=== PATIENT | female | born 1975 | race Caucasian/White ===

== ENCOUNTER 2019-02-07 05:44 | Emergency (ER) | payer SELFPAY ==
[2019-02-07] MEDS ORDERED: SODIUM CHLORIDE 0.9% (FLUSH) 10 ML SYG IV PRN (06:00)
[2019-02-07] MEDS ORDERED: KETOROLAC TROMETHAMINE INJ 30 MG/ML VIAL IV ONE (06:00)
[2019-02-07] MEDS ORDERED: SODIUM CHLORIDE 0.9% 1000ML 1,000 ML IVS ONE ×3 (06:01→10:45)
--- NOTE | 2019-02-07 06:05 | ED.PDOC ---
History of Present Illness - General Source: patient - History of Present Illness Initial Comments: 43 yo female who presents with cc of abdominal pain. Reports onset last night and persistent through this morning, located to RLQ with radiation around to right lower flank region, constant, dull 4/10 severity, intermittently becomes sharp and more severe sporadically, no change with position or urination, took Tylenol & ibuprofen overnight with little improvement. Also reports she has been running fever since 4 days ago, Tmax 104 F at home. No other acute sx's reported. Denies n/v/d, sore throat, cough, dyspnea. No hx of similar pains. Reports hx of cholecystectomy at age 27. <Nikhil Davalos - Last Filed: 02/07/19 12:20> <Ana Cristina Vera - Last Filed: 02/07/19 22:23> - General Time Seen by Provider: 02/07/19 05:52 - History of Present Illness Allergies/Adverse Reactions: Allergies Penicillins Allergy (Verified 02/07/19 06:01) Rash Review of Systems - Review of Systems Review of Systems: 02/07/19 06:05 as per HPI All other Systems: Reviewed and Negative <Nikhil Davalos - Last Filed: 02/07/19 12:20> Past Medical History (General) - Patient Medical History Hx Stroke: No Hx Congestive Heart Failure: No Hx Hypertension: Yes Hx Thyroid Disease: Yes Hx Diabetes: No Hx MRSA: No - Vaccination History Hx Influenza Vaccination: No Hx Pneumococcal Vaccination: No - Social History Hx Tobacco Use: Yes Hx Alcohol Use: No Hx Substance Use: No - Female History Patient is a Female of Child Bearing Age (10 -59 yrs old): No <Nikhil Davalos - Last Filed: 02/07/19 12:20> Family Medical History - Family History Mother Family History: No Known Living Status: Still Living <Nikhil Davalos - Last Filed: 02/07/19 12:20> Physical Exam - Physical Exam General Appearance: Alert, No apparent distress Eye Exam: bilateral normal Ears, Nose, Throat: hearing grossly normal, normal ENT inspection, normal pharynx Neck: non-tender, full range of motion, supple, normal inspection Respiratory: normal breath sounds, no respiratory distress Cardiovascular/Chest: normal peripheral pulses, regular rate, rhythm, no edema, no murmur Peripheral Pulses: radial,right: 2+, radial,left: 2+ Gastrointestinal/Abdominal: soft, no organomegaly, abnormal bowel sounds - diminished, tenderness - mod ttp RLQ and right lower flank region Back Exam: normal inspection, CVA tenderness (R) Extremity: normal range of motion, non-tender, normal inspection, no pedal edema, no calf tenderness, normal capillary refill Neurologic: sharepoint engineer II-XII nml as tested, no motor/sensory deficits, alert, normal mood/affect, oriented x 3 Skin Exam: normal color, warm/dry <Nikhil Davalos - Last Filed: 02/07/19 12:20> Progress - Progress Progress: 02/07/19 06:06 RLQ pain -consider UTI/pyelo most likely vs kidney stone vs constipation vs gastroenteritis vs acute appendicitis vs abdominal wall muscle strain vs other -check UA, labs, flu 02/07/19 07:06 -WBC 13,000 without left shift or bandemia, awaiting UA. CMP with K 2.9, otherwise pretty unremarkable. Pain much improved with IVF's & Toradol. Obtaining CT AP for further eval. -Hand off given to Dr. Vera at shift change Nikhil Davalos MD Billing #[id number] <Nikhil Davalos - Last Filed: 02/07/19 12:20> - Progress Progress: 02/07/19 11:01 Pt is very well appearing, however BP has slowly gone down, latest reading is 86 systolic. Pt has received 2L bolus and levaquin at this time. Will start fluids at 125cc/hr and reassess need for further intervention. Discussed with Dr. Coleman, urology, if clinically warranted, recommends transfer and he will consult. Discussed with Dr. Arguelles, ED physician at [facility], accepts pt for transfer. Prior to transfer systolic BP low 100's. Ana Cristina Vera MD Emergency Physician Billing #[id number] - Results/Orders Results/Orders: 02/07/19 06:00 Sodium Chloride 0.9% (Flush) [Saline Flush Syringe] 10 ml IV PRN PRN 02/07/19 08:14 Urine Culture Stat 02/07/19 09:31 levoFLOXacin 750MG IV [Levaquin 750MG IV] 750 mg Premix Bag 1 bag IVPB ONCE 02/07/19 10:45 Sodium Chloride 0.9% 1000ML [Ns 1000 ml] 1,000 ml IVS ONCE Laboratory Results - last 24 hr 02/07/19 02/07/19 02/07/19 06:10 06:10 06:10 WBC 13.8 H RBC 4.02 L Hgb 12.3 Hct 36.2 MCV 90.1 MCH 30.5 MCHC 33.9 RDW 13.2 Plt Count 328 MPV 8.5 Absolute Neuts (auto) 10.00 H Absolute Lymphs (auto) 1.60 Absolute Monos (auto) 2.10 H Absolute Eos (auto) 0.10 Absolute Basos (auto) 0.10 Neutrophils % 72.6 Lymphocytes % 11.4 L Monocytes % 14.9 H Eosinophils % 0.6 L Basophils % 0.5 Sodium 133 L Potassium 2.9 L Chloride 95 L Carbon Dioxide 23 Anion Gap 17.9 BUN 10 Creatinine 0.83 BUN/Creatinine Ratio 12.0 Random Glucose 145 H Serum Osmolality 268.0 L Lactic Acid Calcium 9.1 Total Bilirubin 0.6 Direct Bilirubin 0.1 Indirect Bilirubin 0.5 AST 20 ALT 20 Alkaline Phosphatase 85 Serum Total Protein 7.3 Albumin 3.2 Lipase 20 L Serum HCG, Qual Negative Urine Color Urine Appearance Urine pH Ur Specific [place] Urine Protein Urine Glucose (UA) Urine Ketones Urine Blood Urine Nitrite Urine Bilirubin Urine Urobilinogen Ur Leukocyte Esterase Urine RBC Urine WBC Ur Epithelial Cells Amorphous Sediment Urine Bacteria 02/07/19 02/07/19 08:14 08:15 WBC RBC Hgb Hct MCV MCH MCHC RDW Plt Count MPV Absolute Neuts (auto) Absolute Lymphs (auto) Absolute Monos (auto) Absolute Eos (auto) Absolute Basos (auto) Neutrophils % Lymphocytes % Monocytes % Eosinophils % Basophils % Sodium Potassium Chloride Carbon Dioxide Anion Gap BUN Creatinine BUN/Creatinine Ratio Random Glucose Serum Osmolality Lactic Acid 0.7 Calcium Total Bilirubin Direct Bilirubin Indirect Bilirubin AST ALT Alkaline Phosphatase Serum Total Protein Albumin Lipase Serum HCG, Qual Urine Color Zohra H Urine Appearance Clear Urine pH 6.5 Ur Specific [place] 1.020 Urine Protein >=300 H Urine Glucose (UA) Negative Urine Ketones Negative Urine Blood Small H Urine Nitrite Positive H Urine Bilirubin Negative Urine Urobilinogen 0.2 Ur Leukocyte Esterase Small H Urine RBC 3-5 H Urine WBC Tntc H Ur Epithelial Cells 1-3 Amorphous Sediment 2+ Urine Bacteria 4+ H CT abd/pelvis: ADDENDUM #1 Clarification of Impression: Subtle right perinephric fat stranding and prominence of the right renal pelvis and proximal ureter could represent infectious or inflammatory etiology. No ureteral calcification is identified. Electronically signed by: Edilberto Luke MD 02/07/2019 9:48 AM GL ACCOUNTANT ORIGINAL REPORT EXAM DESCRIPTION: Abdoment/Pelvis w/o Contrast CLINICAL HISTORY: RLQ Right flank pain, fevers COMPARISON: None. TECHNIQUE: Noncontrast transaxial CT imag es of the abdomen and pelvis are obtained. This exam was performed according to our departmental dose-optimization program, which includes automated exposure control, adjustment of the mA and/or kV according to patient size and/or use of iterative reconstruction technique . FINDINGS: The visualized lung bases show no acute findings. Given the limitations of a noncontrast exam the liver, spleen, pancreas, and adrenal glands are unremarkable. Surgical clips from cholecystectomy are seen. Abdominal vasculature shows mild calcific atherosclerotic disease. No nephrolithiasis. Subtle right perinephric fat stranding with mild dilatation of the right renal pelvis and proximal ureter to the level of the iliac vessels without ureteral calcification.. No ureteral calcification or obstruction. Urinary bladder is poorly distended but unremarkable. Increased attenuation material seen within the appendix which also contains air. The appendix is normal size measuring 5 to 6 mm diameter without wall thickening or surrounding inflammation. Moderate retrocardiac hiatal hernia. No small bowel obstruction, bowel wall thickening, or inflammatory changes. Increased attenuation seen throughout the stool in the colon. Mild to moderate scattered diverticuli of the colon are seen without associated inflammatory changes or fluid collections. Uterus is not identified and presumed surgically absent. The ovaries are not identified. No pathologically enlarged abdominal or retroperitoneal lymphadenopathy. Osseous structures show no aggressive bony lesions. No significant spondylitic changes. IMPRESSION: Subtle right perinephric fat stranding and prominence of the right renal pelvis and proximal ureter could represent infectious or inflammatory etiology. Ureteral calcification is identified. Correlate with urinalysis for possible pyelonephritis. No CT evidence of acute appendicitis. Colon diverticulosis without CT evidence of diverticulitis is seen. Moderate retrocardiac hiatal hernia. Electronically signed by: Edilberto Luke MD 02/07/2019 7:51 AM GL ACCOUNTANT END ADDENDUM EXAM DESCRIPTION: Abdoment/Pelvis w/o Contrast CLINICAL HISTORY: RLQ Right flank pain, fevers COMPARISON: None. TECHNIQUE: Noncontrast transaxial CT images of the abdomen and pelvis are obtained. This exam was performed according to our departmental dose-optimization program, which includes automated exposure control, adjustment of the mA and/or kV according to patient size and/or use of iterative reconstruction technique . FINDINGS: The visualized lung bases show no acute findings. Given the limitations of a noncontrast exam the liver, spleen, pancreas, and adrenal glands are unremarkable. Surgical clips from cholecystectomy are seen. Abdominal vasculature shows mild calcific atherosclerotic disease. No nephrolithiasis. Subtle right perinephric fat stranding with mild dilatation of the right renal pelvis and proximal ureter to the level of the iliac vessels without ureteral calcification.. No ureteral calcification or obstruction. Urinary bladder is poorly distended but unremarkable. Increased attenuation material seen within the appendix which also contains air. The appendix is normal size measuring 5 to 6 mm diameter without wall thickening or surrounding inflammation. Moderate retrocardiac hiatal hernia. No small bowel obstruction, bowel wall thickening, or inflammatory changes. Increased attenuation seen throughout the stool in the colon. Mild to moderate scattered diverticuli of the colon are seen without associated inflammatory changes or fluid collections. Uterus is not identified and presumed surgically absent. The ovaries are not identified. No pathologically enlarged abdominal or retroperitoneal lymphadenopathy. Osseous structures show no aggressive bony lesions. No significant spondylitic changes. IMPRESSION: Subtle right perinephric fat stranding and prominence of the right renal pelvis and proximal ureter could represent infectious or inflammatory etiology. Ureteral calcification is identified. Correlate with urinalysis for possible pyelonephritis. No CT evidence of acute appendicitis. Colon diverticulosis without CT evidence of diverticulitis is seen. Moderate retrocardiac hiatal hernia. Electronically signed by: Edilberto Luke MD 02/07/2019 7:51 AM GL ACCOUNTANT Vital Signs - 24 hr 02/07/19 02/07/19 02/07/19 05:51 06:00 07:26 Temperature 101.6 F H Pulse Rate [ 96 H 87 71 Left Radial] Respiratory 20 16 16 Rate Blood Pressure 111/71 116/74 95/54 [Left Arm] O2 Sat by Pulse 96 93 L 95 Oximetry 02/07/19 02/07/1919 08:02 08:54 09:34 Temperature 98.2 F Pulse Rate [ 70 67 72 Left Radial] Respiratory 20 16 18 Rate Blood Pressure 100/67 100/54 101/66 [Left Arm] O2 Sat by Pulse 94 L 93 L 95 Oximetry 02/07/19 10:07 Temperature Pulse Rate [ 71 Left Radial] Respiratory 20 Rate Blood Pressure 96/66 [Left Arm] O2 Sat by Pulse 94 L Oximetry <Ana Cristina Vera - Last Filed: 02/07/19 22:23> Departure <Nikhil Davalos - Last Filed: 02/07/19 12:20> - Departure Time of Disposition: 10:56 <Ana Cristina Vera - Last Filed: 02/07/19 22:23> - Departure Clinical Impression: Pyelonephritis Disposition: Transfer to Hospital Condition: Fair Referrals: WANG AUGUSTINE,FELIPA Guerrier [Primary Care Provider] - 1-2 Weeks
[2019-02-07] MEDS ORDERED: POTASSIUM CHLORIDE 20 MEQ TAB PO ONE (07:04)
--- NOTE | 2019-02-07 07:53 | CT ---
EXAM DESCRIPTION: Abdoment/Pelvis w/o Contrast CLINICAL HISTORY: RLQ Right flank pain, fevers COMPARISON: None. TECHNIQUE: Noncontrast transaxial CT images of the abdomen and pelvis are obtained. This exam was performed according to our departmental dose-optimization program, which includes automated exposure control, adjustment of the mA and/or kV according to patient size and/or use of iterative reconstruction technique . FINDINGS: The visualized lung bases show no acute findings. Given the limitations of a noncontrast exam the liver, spleen, pancreas, and adrenal glands are unremarkable. Surgical clips from cholecystectomy are seen. Abdominal vasculature shows mild calcific atherosclerotic disease. No nephrolithiasis. Subtle right perinephric fat stranding with mild dilatation of the right renal pelvis and proximal ureter to the level of the iliac vessels without ureteral calcification.. No ureteral calcification or obstruction. Urinary bladder is poorly distended but unremarkable. Increased attenuation material seen within the appendix which also contains air. The appendix is normal size measuring 5 to 6 mm diameter without wall thickening or surrounding inflammation. Moderate retrocardiac hiatal hernia. No small bowel obstruction, bowel wall thickening, or inflammatory changes. Increased attenuation seen throughout the stool in the colon. Mild to moderate scattered diverticuli of the colon are seen without associated inflammatory changes or fluid collections. Uterus is not identified and presumed surgically absent. The ovaries are not identified. No pathologically enlarged abdominal or retroperitoneal lymphadenopathy. Osseous structures show no aggressive bony lesions. No significant spondylitic changes. IMPRESSION: Subtle right perinephric fat stranding and prominence of the right renal pelvis and proximal ureter could represent infectious or inflammatory etiology. Ureteral calcification is identified. Correlate with urinalysis for possible pyelonephritis. No CT evidence of acute appendicitis. Colon diverticulosis without CT evidence of diverticulitis is seen. Moderate retrocardiac hiatal hernia. Electronically signed by: Edilberto Luke MD 02/07/2019 7:51 AM TANK TRUCK OPERATOR
[2019-02-07] MEDS ORDERED: levoFLOXacin 750MG IV 750 MG in PREMIX BAG 1 BAG IVPB ONE (09:31)
[2019-02-07 11:31] VITALS: BP 102/73; TEMP 98.8; O2SAT 95
== END 2019-02-07 11:25 | disposition short-term general hospital (02) ==
LOC: ER 05:44
DX: N12 Tubulo-interstitial nephritis, not specified as acute or chronic (principal); I10 Essential (primary) hypertension; E07.9 Disorder of thyroid, unspecified; Z88.0 Allergy status to penicillin; Z87.891 Personal history of nicotine dependence
CPT/HCPCS: 36415; 74176; 80048; 80076; 81001; 83605; 83690; 84703; 85025; 87086; 87502; J1885; J1956; J7030